=== PATIENT | female | born 1995 | race Hispanic/Latino ===

== ENCOUNTER 2020-09-27 20:24 | Emergency (ER) | payer SELFPAY ==
[~2020-09-27] VITALS: Ht 154.9 cm; Wt 49.9 kg
[2020-09-27] MEDS ORDERED: LORAZEPAM 0.5 MG TAB PO ONE (22:30)
[2020-09-27] MEDS ORDERED: LORAZEPAM 0.5 MG TAB ONE (22:38)
[2020-09-27] MEDS ORDERED: XANAX1 MG PO (23:08)
== END 2020-09-27 23:20 | disposition home or self-care (01) ==
LOC: FSED 20:45
DX: R07.89 Other chest pain (principal); F41.9 Anxiety disorder, unspecified; R20.2 Paresthesia of skin; F17.210 Nicotine dependence, cigarettes, uncomplicated
CPT/HCPCS: 71046; 80053; 81003; 85025; 93005; 99284

== ENCOUNTER 2024-12-25 13:18 | Emergency (ER) | payer OTHER ==
[~2024-12-25] VITALS: Ht 154.9 cm; Wt 49.9 kg
[~2024-12-25 13:18] MED LIST: XANAX1 MG PO
[2024-12-25 13:45] VITALS: PULSE 61; RESP 20; TEMP 98.3
[2024-12-25] MEDS ORDERED: KETOROLAC TROMETHAMINE 30 MG/ML VIAL ONE (14:03)
[2024-12-25] MEDS ORDERED: FAMOTIDINE 20 MG/2 ML VIAL IV ONE (14:03)
[2024-12-25] MEDS ORDERED: SODIUM CHLORIDE 0.9% 1000ML 1,000 ML ONE (14:04)
[2024-12-25] MEDS: FAMOTIDINE 20 MG/2 ML VIAL IV STA (14:10)
[2024-12-25] MEDS: SODIUM CHLORIDE 0.9% 1000ML 1,000 ML IV SCH (14:10)
[2024-12-25] MEDS: KETOROLAC TROMETHAMINE 30 MG/ML VIAL IV STA (14:10)
[2024-12-25] MEDS ORDERED: IOPAMIDOL 370 MG/ML 100 ML INFUS..BTL INJ ONE (14:24)
[2024-12-25] MEDS ORDERED: KETOROLAC TROME10 MG PO (15:28)
[2024-12-25] MEDS ORDERED: FLOMAX0.4 MG PO (15:28)
[2024-12-25 15:42] VITALS: BP 125/80; PULSE 70; RESP 20; TEMP 98.1; O2SAT 98
== END 2024-12-25 15:38 | disposition home or self-care (01) ==
LOC: FSED 13:38
DX: R10.11 Right upper quadrant pain (principal); N13.2 Hydronephrosis with renal and ureteral calculous obstruction; R11.0 Nausea; F41.9 Anxiety disorder, unspecified
CPT/HCPCS: 74177; 80053; 80307; 81003; 81025; 85025; 99283; J1308; J1885; J7030; Q9967

== ENCOUNTER 2025-01-11 21:05 | Emergency (ER) | payer OTHER ==
[~2025-01-11] VITALS: Ht 154.9 cm; Wt 46.3 kg
[~2025-01-11 21:05] MED LIST changes: +FLOMAX0.4 MG PO; +KETOROLAC TROME10 MG PO
[2025-01-11 21:29] VITALS: PULSE 61; RESP 18; TEMP 98.3
[2025-01-11] MEDS: KETOROLAC TROMETHAMINE 30 MG/ML VIAL IV ONE (22:33)
[2025-01-11] MEDS: LACTATED RINGER'S 1,000 ML INJ ONE (22:33)
[2025-01-11] MEDS: ONDANSETRON HCL INJ 2MG/ML 2ML 2 MG/ML VIAL IV ONE (22:34)
[2025-01-11] MEDS: FAMOTIDINE 20 MG/2 ML VIAL IV ONE (22:34)
[2025-01-11] MEDS ORDERED: ONDANSETRON ODT4 MG PO (23:06)
[2025-01-11 23:40] VITALS: BP 147/87; PULSE 62; RESP 18; TEMP 98.3; O2SAT 99
== END 2025-01-11 23:40 | disposition home or self-care (01) ==
LOC: FSED 21:18
DX: R11.2 Nausea with vomiting, unspecified (principal); N20.0 Calculus of kidney; R31.9 Hematuria, unspecified; R10.9 Unspecified abdominal pain
CPT/HCPCS: 80048; 80076; 81003; 81025; 85025; 96374; 96375; 99283; J1308; J1885; J2405; J7121